=== PATIENT | female | born 1955 | race Caucasian/White ===

== ENCOUNTER 2016-03-22 07:50 | Day surgery (SDC) | payer OTHER ==
[~2016-03-22] VITALS: Ht 157.5 cm; Wt 68.4 kg
[~2016-03-22 07:50] MED LIST: ADVIL200 MG PO; AVINZA30 MG PO; BACTROBAN CREAM15 GM TP; CITALOPRAM HBR20 MG PO; FLEXERIL5 MG PO; GABAPENTIN600 MG PO; INDERAL10 MG PO; KLONOPIN1 MG PO; LEVOFLOXACIN750 MG PO; MS CONTIN,ORAMO15 M1 PO; NEURONTIN100 MG PO; NEURONTIN300 MG PO; OPANA ER10 MG PO; PERCOCET 5/31 TABLET PO; PERCOCET 7.51 TABLET PO; ZESTRIL40 MG PO; inderal PO
[2016-03-22 08:12] VITALS: BP 130/66
[2016-03-22 08:46] LABS: HEMATOCRIT 36.1 % (36.0-46.0); MCH 31.5 PG (29.0-34.0); MCHC 34.3 G/DL (30.0-36.0); MCV 91.6 FL (83-99); MEAN PLAT.VOLUME 9.7 uM^3 (9.5-12.4); PLATELET COUNT 286 K/uL (156-360); RBC DIS.WIDTH-CV 12.8 % (11.8-14.6); RBC DIS.WIDTH-SD 43.2 % (39-53); RED BLOOD COUNT 3.94 M/uL (3.80-5.20)
[2016-03-22 09:30] LABS: ANION GAP 7 MEQ/L (2-14); CHLORIDE 99 MEQ/L (99-109); GFR ESTIMATE (CALCULATED) > 59 mL/min/; GLUCOSE 88 mg/dL (70-99); POTASSIUM 4.2 MEQ/L (3.7-5.4); SAMPLE HEMOLYSIS CHECK 0; SAMPLE ICTERIC CHECK 0; SAMPLE LIPEMIA CHECK 0; SODIUM 135 MEQ/L (136-147); UREA NITROGEN (BUN) 13 mg/dL (9-23)
[2016-03-22 15:47] VITALS: BP 172/78
[2016-03-22 17:17] VITALS: BP 137/63
[2016-03-22 20:26] VITALS: BP 135/65
[2016-03-23] VITALS: BP 127/68
[2016-03-23 04:00] VITALS: BP 140/76
[2016-03-23 08:03] VITALS: BP 138/63
[2016-03-23] MEDS ORDERED: CYCLOBENZAPRINE10 MG PO (08:31)
[2016-03-23] MEDS ORDERED: HYDROCODON-ACE1 EAC7 PO (08:31)
[2016-03-23] MEDS ORDERED: BACTRIM,SEPT1 TABLET PO (09:30)
[2016-03-23] MEDS ORDERED: PARAFON FORTE500 MG PO (09:30)
[2016-03-23] MEDS ORDERED: PERCOCET 7.51 TABLET PO (09:30)
== END 2016-03-23 10:11 | disposition home or self-care (01) ==
LOC: SDC 07:50 → 2SOUTH 13:33 → SDC 13:57 → 3EAST 15:35
PROVIDERS: Neurological Surgery
DX: M50.222 Other cervical disc displacement at C5-C6 level (principal); M50.223 Other cervical disc displacement at C6-C7 level; M54.9 Dorsalgia, unspecified; G95.89 Other specified diseases of spinal cord; F17.200 Nicotine dependence, unspecified, uncomplicated; I10 Essential (primary) hypertension; M19.90 Unspecified osteoarthritis, unspecified site
CPT/HCPCS: 72020; 76000; 80048; 85027; 86850; 86900; 86901; 93005; C1713; G0378; J0131; J0690; J1100; J1170; J2250; J2405; J2710; J3010; J3480